=== PATIENT | male | born 1980 ===

== ENCOUNTER → 2021-08-16 15:04 | Outpatient (BNVA) | payer SELFPAY | PROVIDERS: PCP Family Medicine; Visit Provider Physician Assistant | DX: Z02.79 Encounter for issue of other medical certificate (principal) ==

== ENCOUNTER 2024-07-16 14:27 | Outpatient (AMB) | payer OTHER, SELFPAY ==
--- NOTE | 2024-07-16 14:40 | A.OFFPC_ITS ---
Vital Signs 07/16/24 14:47 07/16/24 15:04 Height 5 ft 8 in Weight 229 lb 6 oz BMI 34.9 BP 88/55 L 100/54 L Blood Pressure Location Rt brachial Rt brachial Position Sitting Sitting Respiration 16 Pulse 98 Pulse Source Pulse Oximeter Temp 98.6 F Temp Source Oral Pulse Oximetry (%) 98 Oxygen Delivery Method Room Air Intake Visit Reasons: constipation/vomiting Intake Note: patient here for follow up visit. Martial Arts Instructor Required: No Allergies No Known Allergies Allergy (Verified 07/16/24 14:43) Tobacco use date assessed: 07/16/24 HPI constipation/vomiting HPI Details 44 y/o male presents today with complain ts of constipation/vomiting. Had been to the emergency department 06/08/24 for abdominal distension and discomfort. They had removed fluid in abdomen and sent it for studies. Presents today with complaints of constipation/vomiting. He notes they had removed some fluids from his abd. this morning. He reports LE swelling. Reports hx of liver failure and kidney issues. HPI Comments History of Present Illness Details Documentation assistance for Po Goode MD, was provided by Dwain Fam, Farm Crew Member on 07/16/2024 at 2:46 PM EST. I, Dr. Goode, have read, observed, and verified documentation. [facility] Surgical History (Updated 01/15/21 @ 13:47 by Krystle Beaulieu, A, [facility]) No pertinent past surgical history Family History (Updated 05/27/22 @ 13:08 by Toya Kamara) Father No problems noted. Mother No problems noted. Brother No problems noted. Son No problems noted. Daughter No problems noted. 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 Nnamdi Cordova, Rubi Mtz, Severiano Ladd and colleagues, with an educational zay from [employer]. Review of Systems Const Denies chills, Denies fatigue, Denies fever(s), Denies headache(s) and Denies weakness ENT Denies dizziness and Denies headache(s) Card Denies dyspnea Resp Denies cough, Denies dyspnea, Denies wheezing and Denies other (shortness of breath) GI Reports constipation, Reports nausea and Reports vomiting Musc Denies numbness and Denies tingling Neuro Denies dizziness, Denies headache(s), Denies numbness, Denies tingling and Denies weakness Psych Denies anxiety and Denies depression Endo Denies fatigue Aller/Immun Denies wheezing Physical exam (Primary Care) Tobacco/Smoking Status: Tobacco use Status Tobacco use date assessed 07/16/24 07/16/24 14:48 Patient Tobacco Use Status Former Tobacco user 07/16/24 14:42 e-Cigarette/Vaping Use Currently Using 07/16/24 14:42 Thrive Assessment: Date of Thrive Assessment Date Thrive assessed 04/24/22 07/16/24 14:42 Const General: well developed; No acute distress Nutritional Appearance: well nourished Orientation/consciousness: patient oriented x3 [facility] Head: Yes normocephalic and Yes atraumatic Eyes General: appearance normal, both eyes and all related structures Pupils: Equal, round and reactive pupils present EOM: EOMs intact bilaterally Resp Effort & Inspection: normal respiratory effort Auscultation: clear to auscultation bilaterally Cardio Rate: regular rate Rhythm: regular rhythm Heart sounds: S1 normal heart sound present, S2 normal heart sound present, no gallops, no murmurs and no rubs Neuro General: patient oriented x3 and gait normal Cranial nerves: Yes Equal, round and reactive pupils present Psych Affect: normal affect Assessment and Plan Assessment & Plan (1) Liver failure: Code(s): K72.90 - Hepatic failure, unspecified without coma Plan: Liver?failure?with?cirrhosis?and?asci anca?secondary?to?history?of?alcohol?abuse.??Patient?has?been?abstinent?of?alcoho l?since?January. 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 Patient?was?taking?occasional?Tylenol?because?he?was?told?to?avoid?NSAIDs. Advised?he?stop?taking?Tylenol.??Will?check?labs?including?renal?function?which? had?been?improving - may?be?able?to?take?small?amounts?of ?NSAIDs?on?occasion?in?the?future. He?can?use?topical?NSAIDs?for?now. Hydrate?well He?remains?abstinent?from?alcohol?and?I?encouraged?this (2) Essential hypertension: Code(s): I10 - Essential (primary) hypertension Plan: Patient?had?history?of?hypertension?but?has?been?hypotensive?due?to? liver?failure?and?hypoalbuminemia No?longer?requires?his?other?blood?pressure?medications?but?is?on?spironolactone ?by?Gastroenterology. (3) Ascites: Code(s): R18.8 - Other ascites Plan: As?above,?status?post?several?rounds?of?paracentesis This?seems?to?be?improving Continue?to?follow?instructions?above?on?liver?failure (4) Cirrhosis: Code(s): K74.60 - Unspecified cirrhosis of liver Plan: As?above (5) Swelling of lower extremity: Code(s): M79.89 - Other specified soft tissue disorders Plan: Patient?has?1+?pitting?edema?in?lower?extremities. He?is?elevating?legs?and?wearing?compression?stockings?and?I?encouraged?this I?do?not?feel?at?this?time?that?furosemide?wo uld?be?tremendously?helpful?and?fact?could?worsen?renal?function. Continue?the?above?recommendations. (6) Renal failure: Code(s): N19 - Unspecified kidney failure Plan: Encouraged?good?hydration Will?continue?to?follow?renal?function Continue?avoiding?oral?NSAIDs?for?now Check?labs (7) Back pain: Code(s): M54.9 - Dorsalgia, unspecified Plan: Recent?fall?and?right?posterior?rib?pain Patient?declines?x-ray Recommend?if?not?improving?he?get?x-ray?done.??Order?is?made. Use?splinting?for?coughing?or?sneezing (8) History of alcohol abuse: Code(s): F10.11 - Alcohol abuse, in remission Plan: Patient?remains?abstinent?of?alcohol?and?I?encouraged?this Orders: Orders XR chest 2V Today M54.9 - Dorsalgia, unspecified Comprehensive [place]. Panel Fast Today K72.90 - Hepatic failure, unspecified without coma, Z00.00 - Encounter for general adult medical examination without abnormal findings Medications: New spironolactone 25 mg PO DAILY 30 days 30 tabs 2RF diclofenac sodium 1% 4 grams topical QID 30 days 100 grams 2RF Coding Level of Care Code Est Pt Level 4 (65558) Diagnoses Liver failure K72.90 Essential hypertension I10 Ascites R18.8 Cirrhosis K74.60 Swelling of lower extremity M79.89 Renal failure N19 Back pain M54.9 History of alcohol abuse F10.11
[2024-07-16 14:47] VITALS: BP 88/55; PULSE 98; RESP 16; TEMP 37; O2SAT 98; BMI 34.9
[2024-07-16 15:04] VITALS: BP 100/54
== END 2024-07-16 15:39 | disposition home or self-care (01) ==
PROVIDERS: PCP Family Medicine; Visit Provider Family Medicine
DX: K72.90 Hepatic failure, unspecified without coma (principal); K74.60 Unspecified cirrhosis of liver; I10 Essential (primary) hypertension; R18.8 Other ascites; M79.89 Other specified soft tissue disorders; N19 Unspecified kidney failure; M54.9 Dorsalgia, unspecified; F10.11 Alcohol abuse, in remission
CPT/HCPCS: 99214

== ENCOUNTER 2024-08-11 14:42 | Outpatient (AMB) | payer OTHER, SELFPAY ==
--- NOTE | 2024-08-11 14:46 | MHC.PC.OV ---
Vital Signs 08/11/24 14:49 Height 5 ft 8 in Weight 226 lb 4 oz BMI 34.4 BP 80/60 L Blood Pressure Location Rt brachial Position Sitting Respiration 16 Pulse 76 Pulse Source Pulse Oximeter Temp 98.5 F Temp Source Tympanic Pulse Oximetry (%) 97 Oxygen Delivery Method Room Air Intake Visit Reasons: f/u labs Intake Note: F/U Allergies No Known Allergies Allergy (Verified 08/11/24 14:47) Medication List - Last Reconciled 08/11/24 by Po Goode MD loperamide mg PO metoprolol succinate ER 100 mg PO DAILY sodium bicarbonate 650 mg PO BID spironolactone 50 mg PO DAILY 30 days tamsulosin 0.4 mg PO DAILY Tobacco use date assessed: 07/16/24 HPI f/u labs HPI Details 44 y/o male presents to f/u liver failure and LE edema. Also checking renal functions. No recent labs to review. Has an appt. next month with GI. Blood pressure today 80/60, 76p. Had started him on spironolactone and had decreased this to 25mg. He is on metoprolol 100mg, spironolactone - he notes he is on 50mg. HPI Comments History of Present Illness Details Documentation assistance for Po Goode MD, was provided by Dwain Fam, Drama Therapist on 08/11/2024 at 3:11 PM EST. I, Dr. Goode, have read, observed, and verified documentation. [facility] Surgical History (Updated 01/15/21 @ 13:47 by Krystle Beaulieu, RMA, BILINGUAL TRAINER) No pertinent past surgical history Family History (Updated 05/27/22 @ 13:08 by Toya Kamara) Father No problems noted. Mother No problems noted. Brother No problems noted. Son No problems noted. Daughter No problems noted. 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 Nnamdi Cordova, Rubi Mtz, Severiano Ladd and colleagues, with an educational zay from [email or web address]. Review of Systems Const Denies chills, Denies fatigue, Denies fever(s), Denies headache(s) and Denies weakness ENT Denies dizziness and Denies headache(s) Card Denies dyspnea Resp Denies cough, Denies dyspnea, Denies wheezing and Denies other (shortness of breath) Musc Denies numbness and Denies tingling Neuro Denies dizziness, Denies headache(s), Denies numbness, Denies tingling and Denies weakness Psych Denies anxiety and Denies depression Endo Denies fatigue Aller/Immun Denies wheezing Physical exam (Primary Care) Vital Signs: Last Vital Signs Temp 98.5 F 08/11/24 14:49 Pulse 76 08/11/24 14:49 Resp 16 08/11/24 14:49 BP 80/60 L 08/11/24 14:49 Pulse Ox 97 08/11/24 14:49 Oxygen Delivery Method Room Air 08/11/24 14:49 BMI result Body Mass Index 34.4 Tobacco/Smoking Status: Tobacco use Status Tobacco use date assessed 07/16/24 08/11/24 14:54 Patient Tobacco Use Status Former Tobacco user 08/11/24 14:54 e-Cigarette/Vaping Use Currently Using 08/11/24 14:54 Thrive Assessment: Date of Thrive Assessment Date Thrive assessed 04/24/22 08/11/24 14:54 Const General: well developed; No acute distress Nutritional Appearance: well nourished Orientation/consciousness: patient oriented x3 [facility] Head: Yes normocephalic and Yes atraumatic Eyes General: appearance normal, both eyes and all related structures Pupils: Equal, round and reactive pupils present EOM: EOMs intact bilaterally Resp Effort & Inspection: normal respiratory effort Neuro General: patient oriented x3 and gait normal Cranial nerves: Yes Equal, round and reactive pupils present Psych Affect: normal affect Assessment and Plan Assessment & Plan (1) Liver failure: Code(s): K72.90 - Hepatic failure, unspecified without coma Plan: Patient?was?scheduled?to?follow-up lab?work?including?liver?enzymes?and?renal?function. Has?not?had?his?labs?drawn?but?will?do?so?today He?has?an?appointment?with gastroenterology?August??and?I?wrote?this?down?for?him. Follow-up?with?GI We?will?follow-up?on?lab?work?at?telemedicine?appointment?next?week (2) Ascites: Code(s): R18.8 - Other ascites Plan: As?above,?follow-up?with?GI (3) Renal failure: Code(s): N19 - Unspecified kidney failure Plan: Followed?by?Nephrology?at?[facility] Will?request?most?recent?note (4) Essential hypertension: Code(s): I10 - Essential (primary) hypertension Plan: Patient?is?on?metoprolol?and?also?spironolactone Has?been?getting?dizzy?and?blood?pressures?at?home?have?been?quite?low.??Also?low?again?in?the?office. Hydrate?well Had?decreased?spironolactone?but?he?was?advised?to?increase?this?again. 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 Panel Today K72.90 - Hepatic failure, unspecified without coma, N19 - Unspecified kidney failure Referrals Sleep Medicine Referral G47.30 - Sleep apnea, unspecified Medications: Changed From spironolactone 25 mg PO DAILY 30 days 30 tabs 2RF To spironolactone 50 mg PO DAILY 30 days 30 tabs 2RF Coding Level of Care Code Est Pt Level 4 (16109) Diagnoses Liver failure K72.90 Ascites R18.8 Renal failure N19 Essential hypertension I10 Sleep apnea G47.30
[2024-08-11 14:49] VITALS: BP 80/60; PULSE 76; RESP 16; TEMP 36.9; O2SAT 97; BMI 34.4
== END 2024-08-11 15:33 | disposition home or self-care (01) ==
PROVIDERS: PCP Family Medicine; Visit Provider Family Medicine
DX: K72.90 Hepatic failure, unspecified without coma (principal); R18.8 Other ascites; N19 Unspecified kidney failure; I10 Essential (primary) hypertension; G47.30 Sleep apnea, unspecified
CPT/HCPCS: 99214

== ENCOUNTER 2024-08-11 15:28 | Outpatient (REF) | payer OTHER, SELFPAY ==
[2024-08-11 17:56] LABS: Alanine Aminotransferase 19 U/L (0-40); Albumin Level 2.6 g/dL (3.5-5.0); Alkaline Phosphatase 142 U/L (39-117); Anion Gap 8 (12-20); Aspartate Amino Transferase 43 U/L (5-37); Bilirubin Total 2.1 mg/dL (0.0-1.0); Blood Urea Nitrogen 24 mg/dL (9-16); Carbon Dioxide 26 mmol/L (22-29); Chloride 108 mmol/L (96-108); Estimated Glomerular Filt Rate 34; Glucose Random 118 mg/dL (60-115); Potassium 4.9 mmol/L (3.3-5.1); Sodium 137 mmol/L (135-145); Total Protein 7.3 g/dL (6.5-8.0)
== END 2024-08-11 15:29 | disposition home or self-care (01) ==
LOC: HO.WFDLDS 15:28
PROVIDERS: Visit Provider Family Medicine
DX: N19 Unspecified kidney failure (principal); K72.90 Hepatic failure, unspecified without coma
CPT/HCPCS: 36415; 80053

== ENCOUNTER 2024-09-15 13:45 | Outpatient (AMB) | payer OTHER, SELFPAY ==
--- NOTE | 2024-09-15 13:54 | MHC.OFFVIS ---
Vital Signs 09/15/24 13:58 Height 5 ft 8 in Weight 207 lb 3.752 oz BMI 31.5 BP 111/67 Blood Pressure Location Lt brachial Position Sitting Pulse 73 Intake Visit Reasons: Unspecified cirrhosis of liver, w/ ascites Intake Note: Rory presents in the office as a new patient for unspecified cirrhosis of liver. CC: He states that he goes from having diarrhea for a week to having constipation. When he is having the constipation he throws up and gets bloating - states that when he throws up 8-10 hours later the food seems to not have digested. Speech Language Pathology Assistant Required: No Allergies No Known Allergies Allergy (Verified 09/15/24 14:02) HPI Comments Details: 44 y.o M with PMH of metALD related cirrhosis with ascites who is here to switch care. Pt reports drinking 4 drinks of vodka daily x 25 years and then quit drinking May 2024 when he got admitted for decomp cirrhosis at [facility]. Quit on his own. However has been to a few AA meetings for his son and GF who are both recovering alcoholics. Remote hx of smoking. May 2024 was the first time he ever found out about cirrhosis and damage from etOH. Previously elevated LFTs had come up on labs done for annual physical exams. No current or previous hx of IVDU. No fam hx of etOH cirrhosis but strong hx of etOH use disorder: his father, son, brother. Hx of DUI in his 20s. No rehab admissions. Pt also reports mental fog has a hard time waking up, feels more fatigue. More forgetful, has to set reminders for daily meds even. Ongoing x 2-3 months. Lives with a friend. Got 3 years ago. 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 Also had a massive weight loss primarily muscle wasting over the last 6 months. Used to weight 300 lbs. Also used to have DM but now not on any meds due to a normal A1c. [facility] Surgical History No pertinent past surgical history Family History Father No problems noted. Mother No problems noted. Brother No problems noted. Son No problems noted. Daughter No problems noted. 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 Cognitive needs: No Hearing needs: No Vision needs: No Review of Systems Const All systems reviewed & are unremarkable except as noted in HPI and below Physical Exam Vital Signs: Last Vital Signs Pulse 73 09/15/24 13:58 BP 111/67 09/15/24 13:58 BMI result Body Mass Index 31.5 No apparent distress Nonicteric Abdomen soft, nondistended Alert and oriented x3, normal gait, no asterixis Assessment & Plan Assessment & Plan (1) History of alcohol abuse: Code(s): F10.11 - Alcohol abuse, in remission Category: Medical (2) Ascites: Code(s): R18.8 - Other ascites Category: Medical (3) Cirrhosis: Code(s): K74.60 - Unspecified cirrhosis of liver Category: Medical (4) Nausea: Code(s): R11.0 - Nausea Category: Medical (5) Abdominal pain: Code(s): R10.9 - Unspecified abdominal pain Category: Medical Plan 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 Hx suspicious for covert encephalopathy. Will start lactulose. He will also need US Abd for HCC screening. Pt was counseled that will get labs for true assessment of underlying liver function as well as to r/o other causes of liver disease. Discussion re transplant candidacy to explored in future visits. Plan - Updated MELD labs - Chronic liver disease work up - US Abd - EGD to be booked for variceal screening - Start lactulose 30 ml TID for goal 2-3 BMs - Add protein shakes. Avoid fasting. Add night time snack. CRC screening: Can be booked for a colo at the same time as EGD. Pt would like to book the procedures at next visit. Close follow up 6 weeks. Orders: Orders Complete Blood Count no Diff 09/15/24 K74.60 - Unspecified cirrhosis of liver Prothrombin Time INR 09/15/24 K74.60 - Unspecified cirrhosis of liver Alpha 1 Anti-trypsin 09/15/24 K74.60 - Unspecified cirrhosis of liver WILLIAMS Reflex Titer and Pattern 09/15/24 K74.60 - Unspecified cirrhosis of liver Ceruloplasmin 09/15/24 K74.60 - Unspecified cirrhosis of liver Hemoglobin A1c 09/15/24 K74.60 - Unspecified cirrhosis of liver Hepatitis B Surface Antigen 09/15/24 K74.60 - Unspecified cirrhosis of liver HIV Ab/Ag 09/15/24 K74.60 - Unspecified cirrhosis of liver Immunoglobulin G 09/15/24 K74.60 - Unspecified cirrhosis of liver Liver Kidney Microsomal Ab 09/15/24 K74.60 - Unspecified cirrhosis of liver Phosphatidylethanol, Blood 09/15/24 K74.60 - Unspecified cirrhosis of liver US abdomen complete 09/15/24 K72.90 - Hepatic failure, unspecified without coma Lipid Panel 09/15/24 K72.90 - Hepatic failure, unspecified without coma Comprehensive Met. Panel 09/15/24 K74.60 - Unspecified cirrhosis of liver Ferritin 09/15/24 K74.60 - Unspecified cirrhosis of liver IRON PROFILE 09/15/24 K74.60 - Unspecified cirrhosis of liver Gamma Glutamyl Transpeptidase 09/15/24 K74.60 - Unspecified cirrhosis of liver Hepatitis A IgG 09/15/24 K74.60 - Unspecified cirrhosis of liver Hepatitis B Core Antibody 09/15/24 K74.60 - Unspecified cirrhosis of liver Hepatitis B Surface Antibody 09/15/24 K74.60 - Unspecified cirrhosis of liver Hepatitis C Antibody 09/15/24 K74.60 - Unspecified cirrhosis of liver Mitochondrial Antibody 09/15/24 K74.60 - Unspecified cirrhosis of liver Smooth Muscle Antibody 09/15/24 K74.60 - Unspecified cirrhosis of liver Transglutaminase IgA 09/15/24 K74.60 - Unspecified cirrhosis of liver Medications: New lactulose Take 2-3 times a day for goal 2-3 loose BMs a day 20 grams (30 mL) PO TID 3,000 mL 1RF food supplemt, lactose-reduced (Boost) 1 ea PO BID 14,220 mL 2RF 30 days Coding Level of Care Code New Pt Level 5 (69484) Complex EM visit Add On G2211 Diagnoses History of alcohol abuse F10.11 Ascites R18.8 Cirrhosis K74.60 Nausea R11.0 Abdominal pain R10.9
[2024-09-15 13:58] VITALS: BP 111/67; PULSE 73; BMI 31.5
== END 2024-09-15 15:23 | disposition home or self-care (01) ==
PROVIDERS: PCP Family Medicine; Visit Provider Internal Medicine
DX: F10.11 Alcohol abuse, in remission (principal); R18.8 Other ascites; K74.60 Unspecified cirrhosis of liver; R11.0 Nausea; R10.9 Unspecified abdominal pain
CPT/HCPCS: 99205; G2211

== ENCOUNTER → 2024-09-15 13:45 | Outpatient (BNVA) | payer OTHER, SELFPAY | PROVIDERS: PCP Family Medicine; Visit Provider Internal Medicine | DX: K74.60 Unspecified cirrhosis of liver (principal); R18.8 Other ascites; R11.0 Nausea; R10.9 Unspecified abdominal pain; F10.11 Alcohol abuse, in remission | CPT/HCPCS: 99202 ==

== ENCOUNTER 2024-09-17 09:58 | Outpatient (REF) | payer OTHER, SELFPAY | END 2024-09-17 09:59 | disposition home or self-care (01) | LOC: HO.US 09:58 | PROVIDERS: PCP Family Medicine; Visit Provider Internal Medicine Infectious Disease | DX: Z13.89 Encounter for screening for other disorder (principal) ==